=== PATIENT | female | born 1955 | race Caucasian/White ===

== ENCOUNTER → 2017-08-16 08:11 | Outpatient (CLI) | payer OTHER, SELFPAY ==
[2017-08-16 09:32] LABS: Hematocrit 37.4 % (36-46); Hemoglobin 12.8 g/dL (12.0-16.0); Mean Corpuscular HGB Conc 34.2 % (30-36); Mean Corpuscular Hemoglobin 29.7 PG (26-34); Mean Corpuscular Volume 86.9 fL (80-100); Platelet Count 224 X10^3/uL (150-400); Red Blood Cell Count 4.31 X10^6/uL (4.0-5.2); Red Cell Distribution Width 13.2 % (11.6-14.8); White Blood Cell Count 6.7 X10^3/uL (4.5-11.0)
[2017-08-16 09:43] LABS: Morphology Comment Normal Morphology; Neutrophils Absolute Manual 3149 /uL (3000-5900); Total Cells Counted 100
[2017-08-16 09:45] LABS: Alanine Aminotransferase 20 IU/L (9-52); Albumin 4.4 g/dL (3.5-5.0); Albumin Globulin Ratio 1.5 (1.0-2.8); Alkaline Phosphatase 99 U/L (38-126); Amylase 91 U/L (30-110); Aspartate Aminotransferase 19 IU/L (14-36); Bilirubin Total 0.3 mg/dL (0.2-1.3); Blood Urea Nitrogen 14 mg/dL (7-17); Calcium 9.8 mg/dL (8.4-10.2); Carbon Dioxide 26 mmol/L (22-32); Chloride 102 mmol/L (98-107); Estimated Glomerular Filt Rate > 60.0 mL/min (>60); Globulin 2.9 g/dL (1.7-4.1); Glucose 117 mg/dL (80-110); HEMOLYSIS < 15 (0-50); Lipase 393 U/L (23-300); Sodium 140 mmol/L (137-145); Total Protein 7.3 g/dL (6.3-8.2)
== END ==
PROVIDERS: Family Provider Family Medicine; PCP Family Medicine; Visit Provider Family Medicine
DX: E03.9 Hypothyroidism, unspecified (principal); I10 Essential (primary) hypertension
CPT/HCPCS: 36415; 80053; 82150; 83690; 85025

== ENCOUNTER → 2017-08-16 08:38 | Outpatient (CLI) | payer OTHER, SELFPAY ==
--- NOTE | 2017-08-16 08:40 | DI.RAD.S_ITS ---
PROCEDURE: XR PELVIS 1-2V COMPARISON: None. INDICATIONS: Left hip pain FINDINGS: There is slight narrowing of the left hip joint and a small subcortical cyst in the left acetabulum laterally. No deformity of the femoral heads and no visible marginal spurring. The sacroiliac joints appear normal. IMPRESSION: 1. Mild grade 1 osteoarthritis left hip. 2. No acute fracture, dislocation or diastases. No suspicious bone lesions. Dictated by: Britton Gibson M.D. on 08/16/2017 at 8:53 Approved by: Britton Gibson M.D. on 08/16/2017 at 8:55
== END ==
PROVIDERS: Family Provider Family Medicine; PCP Family Medicine; Visit Provider Family Medicine
DX: E03.9 Hypothyroidism, unspecified (principal); I10 Essential (primary) hypertension; M16.12 Unilateral primary osteoarthritis, left hip
CPT/HCPCS: 36415; 72170; 80053; 82150; 83690; 85025

== ENCOUNTER → 2017-08-29 08:03 | Outpatient (CLI) | payer OTHER, SELFPAY ==
--- NOTE | 2017-08-29 08:04 | DI.US.S_ITS ---
PROCEDURE: US ABDOMEN COMPLETE INDICATIONS: LEFT UPPER QUADRANT PAIN TECHNIQUE: Real-time scanning was performed of the abdominal and retroperitoneal organs, with image documentation. COMPARISON: None. FINDINGS: Liver: Liver is normal in size and homogeneous in echotexture. Gallbladder: No gallstones identified. Normal gallbladder wall. No pericholecystic fluid. Negative sonographic Antunez sign. Biliary ducts: Intrahepatic bile ducts are non-dilated. Extrahepatic bile duct caliber measures 4.5 mm. Normal is 6-7 mm or less in diameter, or 10 mm or less post-cholecystectomy. Pancreas: Visualized portions of the pancreas are sonographically normal. Spleen: Spleen is normal in size and homogeneous in echotexture. Kidneys: Kidneys are normal in size and echotexture. Right kidney measures 9.8 cm long; left kidney measures 10.5 cm long. No hydronephrosis or nephrolithiasis. No solid masses. Aorta: Visualized aorta is normal in caliber at less than 3 cm. Iliacs: Proximal common iliac arteries are normal in caliber at less than 2.5 cm. IVC: Intrahepatic inferior vena cava is patent. Miscellaneous: No free abdominal fluid. IMPRESSION: No source for left upper quadrant pain identified sonographically. Dictated by: Hugo SWANSON Interpreted: Gregg Miller MD on 08/29/2017 at 9:08 Approved by: Gregg Miller M.D. on 08/29/2017 at 11:05
== END ==
PROVIDERS: Family Provider Family Medicine; PCP Family Medicine; Visit Provider Family Medicine
DX: R10.12 Left upper quadrant pain (principal); R10.2 Pelvic and perineal pain
CPT/HCPCS: 76700

== ENCOUNTER → 2017-11-03 10:02 | Outpatient (CLI) | payer OTHER, SELFPAY ==
[2017-11-03 11:20] LABS: Hemoglobin A1C% w Est Avg Glu 6.5 % (4.0-6.0)
[2017-11-03 12:01] LABS: Creatinine Urine Random 74.9 mg/dL
[2017-11-03 12:04] LABS: Alanine Aminotransferase 18 IU/L (9-52); Albumin 4.3 g/dL (3.5-5.0); Albumin Globulin Ratio 1.4 (1.0-2.8); Alkaline Phosphatase 72 U/L (38-126); Aspartate Aminotransferase 23 IU/L (14-36); BUN Creatinine Ratio 13.8 (6-22); Bilirubin Total 0.6 mg/dL (0.2-1.3); Blood Urea Nitrogen 11 mg/dL (7-17); Calcium 9.8 mg/dL (8.4-10.2); Carbon Dioxide 30 mmol/L (22-32); Chloride 102 mmol/L (98-107); Cholesterol 188 mg/dL (140-199); Estimated Glomerular Filt Rate > 60.0 mL/min (>60); Glucose 117 mg/dL (80-110); HDL Cholesterol 62 mg/dL (40-60); HEMOLYSIS < 15 (0-50); LDL Cholesterol Calculated 94 mg/dL (<100); Potassium 5.1 mmol/L (3.4-5.1); Sodium 141 mmol/L (137-145); Total Protein 7.3 g/dL (6.3-8.2); Triglycerides 160 mg/dL (35-150)
[2017-11-03 12:19] LABS: Microalbumin Urine Random < 0.6 mg/dL (0-1.6)
== END ==
PROVIDERS: Family Provider Family Medicine; PCP Family Medicine; Visit Provider Family Medicine
DX: E11.9 Type 2 diabetes mellitus without complications (principal); I10 Essential (primary) hypertension
CPT/HCPCS: 36415; 80053; 80061; 82043; 82570; 83036

== ENCOUNTER 2017-11-24 09:00 | Outpatient (RCR) | payer OTHER, SELFPAY ==
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
--- NOTE | 2017-10-16 15:50 | PT.OPPOC ---
Current Diagnoses Pain in unspecified hip (10/13/17) Sacrococcygeal disorders, not elsewhere classified (10/13/17) Strain of muscle, fascia and tendon of the posterior muscle group at thigh level, left thigh, subsequent encounter (10/13/17) Provider Visit Care Team Role Provider Type Soni Ron DO Attending Provider Physician Family Provider Primary Care Provider Specialty: Family Practice Address: [address] [place] [address], [facility] Email: [email or web address] Plan Of Care PT-OP-T Assessment and Plan Start: 10/13/17 08:53 Freq: Status: Active Protocol: Document 10/13/17 09:00 AMB (Rec: 10/16/17 15:41 AMB [email or web address]) Physical Therapy Assessment Rehab Potential Rehabilitation Potential Fair Evaluation Complexity Number of Personal Factors/Comorbidities 1-2 Number of Body Systems Impaired 3 Clinical Presentation at Evaluation Stable Impairments Impairments Pain Posture Strength Goals Four Impairment ROM Short Term Goal (STG) The patient will increase her left straight leg raise to 90 degrees to show improved hamstring flexibility. STG Duration 4 weeks Three Impairment Gait [facility] Goal (LTG) The patient will ambulate in the community for 30 minutes with pain of 3/10 or less. LTG Duration 8 weeks Two Impairment Strength Short Term Goal (STG) The patient will increase her hamstring and gluteal strength to 4+/5. STG Duration 4 weeks [facility] Goal (LTG) The patient will use her increased LE strength to perform a full squat without an increase in pain. LTG Duration 8 weeks. One Impairment Activity tolerance Short Term Goal (STG) The patient will sit for 15 minutes without an increase in baseline pain. STG Duration 4 weeks Flooring Sales Manager Goal (LTG) The patient will roll over in bed without an increase in pain. 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 The patient is weak and tight in her gluteals and hamstrings, and while she has coccyx dysfunction, at this point is not interested in internal mobilization. She will benefit from both manual therapy and exercise although she states that she dislikes exercise and feels that she needs surgery (although she does not state what kind of surgery she is interested in). Physical Therapy Plan Frequency and Duration Frequency of Treatment 2x/Week Duration of Treatment 8 weeks Plan of Care Start Date 10/13/17 Plan of Care End Date 12/08/17 Therapeutic Interventions Therapeutic Interventions Aquatic Therapy Gait Training Joint Mobilizations Manual Therapy Neuromuscular Re-education Self-Care/Home Management Therapeutic Activities Therapeutic Exercises Modalities Cold Pack/Ice Massage Electric Stimulation Hot Packs Ultrasound Next Visit Focus/Plan Next Note Type Treatment Note Plan of Care Dates Plan of Care Start Date 10/13/17 Plan of Care End Date 12/08/17 Please Sign and Return: I have reviewed this Plan of Care and certify that the skilled therapy services above are required to meet the patient?s needs. Physician Signature Date Printed Name and Credentials Clinical Instructor Signature Printed Name and Credentials
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
== END 2018-02-13 10:57 ==
LOC: PHYS 09:00
PROVIDERS: Family Provider Family Medicine; PCP Family Medicine; Visit Provider Family Medicine
DX: M25.559 Pain in unspecified hip (principal)
CPT/HCPCS: 97010; 97014; 97110; 97140; 97161; G0283

== ENCOUNTER → 2017-12-20 15:41 | Outpatient (CLI) | payer OTHER, SELFPAY ==
[2017-12-20 18:24] LABS: Estimated Glomerular Filt Rate > 60.0 mL/min (>60)
== END ==
PROVIDERS: Family Provider Family Medicine; PCP Family Medicine; Visit Provider Internal Medicine Gastroenterology
DX: R63.4 Abnormal weight loss (principal)
CPT/HCPCS: 36415; 82565

== ENCOUNTER → 2018-03-30 08:57 | Outpatient (CLI) | payer OTHER, SELFPAY ==
[2018-03-30 09:39] LABS: Appearance Urine UA CLEAR; Bilirubin Urine UA NEGATIVE (NEGATIVE); Color Urine UA YELLOW; Glucose Urine UA NEGATIVE (Negative); Ketones Urine UA NEGATIVE (NEGATIVE); Leukocyte Esterase Urine UA NEGATIVE (NEGATIVE); Nitrite Urine UA NEGATIVE (Negative); Occult Blood Urine UA TRACE-LYSED (Negative); Protein Urine UA NEGATIVE (Negative); Specific Gravity Urine UA 1.025 (1.000-1.035); Urobilinogen Urine UA 0.2 E.U./dL (0.2)
[2018-03-30 09:44] LABS: Hemoglobin A1C% w Est Avg Glu 6.7 % (4.0-6.0)
[2018-03-30 09:45] LABS: Alanine Aminotransferase 17 IU/L (9-52); Albumin 4.4 g/dL (3.5-5.0); Albumin Globulin Ratio 1.5 (1.0-2.8); Alkaline Phosphatase 78 U/L (38-126); Aspartate Aminotransferase 21 IU/L (14-36); BUN Creatinine Ratio 17.5 (6-22); Bilirubin Total 0.2 mg/dL (0.2-1.3); Blood Urea Nitrogen 14 mg/dL (7-17); Calcium 9.5 mg/dL (8.4-10.2); Carbon Dioxide 25 mmol/L (22-32); Chloride 105 mmol/L (98-107); Cholesterol 211 mg/dL (140-199); Estimated Glomerular Filt Rate > 60.0 mL/min (>60); Glucose 120 mg/dL (80-110); HDL Cholesterol 57 mg/dL (40-60); HEMOLYSIS < 15 (0-50); LDL Cholesterol Calculated 130 mg/dL (<100); Potassium 4.3 mmol/L (3.4-5.1); Sodium 140 mmol/L (137-145); Total Protein 7.4 g/dL (6.3-8.2); Triglycerides 122 mg/dL (35-150)
[2018-03-30 10:29] LABS: Free T3, Triiodothyronine Free 2.68 pg/mL (2.77-5.27); Free T4, Direct Thyroxine 1.26 ng/dL (0.78-2.19)
[2018-03-30 10:42] LABS: Thyroid Stimulating Hormone 1.52 uIU/mL (0.47-4.68)
== END ==
PROVIDERS: PCP Family Medicine; Visit Provider Family Medicine
DX: E03.9 Hypothyroidism, unspecified (principal); E11.9 Type 2 diabetes mellitus without complications; I10 Essential (primary) hypertension; Z51.81 Encounter for therapeutic drug level monitoring
CPT/HCPCS: 36415; 80053; 80061; 81003; 83036; 84439; 84443; 84481

== ENCOUNTER → 2018-04-27 13:22 | Outpatient (CLI) | payer OTHER, SELFPAY ==
[2018-04-27 14:01] LABS: Amylase 69 U/L (30-110); Lipase 233 U/L (23-300)
== END ==
PROVIDERS: PCP Family Medicine; Visit Provider Family Medicine
DX: K85.90 Acute pancreatitis without necrosis or infection, unspecified (principal)
CPT/HCPCS: 36415; 82150; 83690

== ENCOUNTER → 2018-06-23 08:18 | Outpatient (CLI) | payer OTHER, SELFPAY ==
--- NOTE | 2018-06-23 08:20 | DI.MG.S_ITS ---
BILATERAL DIGITAL SCREENING MAMMOGRAM 3D/2D WITH CAD: 06/23/2018 CLINICAL: Routine screening. Family history of breast cancer. Comparison is made to exams dated: 10/02/2015 mammogram, 06/08/2010 mammogram, and 12/01/2003 mammogram - [facility]. There are scattered fibroglandular elements in both breasts. Current study was also evaluated with a Computer Aided Detection (CAD) system. No significant masses, calcifications, or other findings are seen in either breast. There has been no significant interval change. IMPRESSION: NEGATIVE There is no mammographic evidence of malignancy. A 1 year screening mammogram is recommended. This exam was interpreted at Station ID: [id number]. NOTE: For mammograms, a report in lay terms will be sent to the patient. Approximately 15% of breast malignancies will not be visualized mammographically. In the management of a palpable breast mass, a negative mammogram must not discourage biopsy of a clinically suspicious lesion. Electronically Signed By: David cortez/felice:06/25/2018 07:44:07 letter sent: Normal Exam ACR BI-RADS Category 1: Negative [id number]
== END ==
PROVIDERS: PCP Family Medicine; Visit Provider Family Medicine
DX: Z12.31 Encounter for screening mammogram for malignant neoplasm of breast (principal); Z80.3 Family history of malignant neoplasm of breast
CPT/HCPCS: 77063; 77067

== ENCOUNTER → 2019-01-03 10:58 | Outpatient (CLI) | payer OTHER, SELFPAY ==
[2019-01-03 11:36] LABS: Add Manual Diff / Slide Review NO; Basophils Absolute Auto 100 /uL (0-100); Basophils Percent Auto 2.1 % (0-2); Eosinophils Absolute Auto 200 /uL (0-450); Eosinophils Percent Auto 3.3 % (2-4); Hematocrit 39.8 % (36-46); Hemoglobin 13.3 g/dL (12.0-16.0); Lymphocytes Absolute Auto 2300 /uL (1100-4500); Lymphocytes Percent Auto 37.5 % (25-40); Mean Corpuscular HGB Conc 33.3 % (30-36); Mean Corpuscular Hemoglobin 29.7 PG (26-34); Mean Corpuscular Volume 89.1 fL (80-100); Monocytes Absolute Auto 500 /uL (0-900); Monocytes Percent Auto 7.5 % (3-14); Neutrophils Absolute Auto 3000 /uL (1500-7000); Neutrophils Percent Auto 49.6 % (50-75); Platelet Count 229 X10^3/uL (150-400); Red Blood Cell Count 4.47 X10^6/uL (4.0-5.2); Red Cell Distribution Width 13.3 % (11.6-14.8)
[2019-01-03 11:56] LABS: Alanine Aminotransferase 12 IU/L (9-52); Albumin 4.4 g/dL (3.5-5.0); Albumin Globulin Ratio 1.5 (1.0-2.8); Alkaline Phosphatase 90 U/L (38-126); Aspartate Aminotransferase 23 IU/L (14-36); BUN Creatinine Ratio 14.3 (6-22); Bilirubin Total 0.4 mg/dL (0.2-1.3); Blood Urea Nitrogen 10 mg/dL (7-17); Calcium 9.7 mg/dL (8.4-10.2); Carbon Dioxide 27 mmol/L (22-32); Chloride 106 mmol/L (98-107); Cholesterol 200 mg/dL (140-199); Estimated Glomerular Filt Rate > 60.0 mL/min (>60); Globulin 2.9 g/dL (1.7-4.1); Glucose 134 mg/dL (80-110); HDL Cholesterol 58 mg/dL (40-60); HEMOLYSIS < 15 (0-50); LDL Cholesterol Calculated 109 mg/dL (<100); Sodium 140 mmol/L (137-145); Total Protein 7.3 g/dL (6.3-8.2); Triglycerides 166 mg/dL (35-150)
== END ==
PROVIDERS: PCP Family Medicine; Visit Provider Family Medicine
DX: E03.9 Hypothyroidism, unspecified (principal); E11.9 Type 2 diabetes mellitus without complications; I10 Essential (primary) hypertension
CPT/HCPCS: 36415; 80053; 80061; 84443; 85025

== ENCOUNTER → 2019-01-11 14:54 | Outpatient (CLI) | payer OTHER, SELFPAY ==
[2019-01-11 15:54] LABS: Hemoglobin A1C% w Est Avg Glu 6.5 % (4.0-6.0)
== END ==
PROVIDERS: PCP Family Medicine; Visit Provider Family Medicine
DX: E11.9 Type 2 diabetes mellitus without complications (principal); I10 Essential (primary) hypertension
CPT/HCPCS: 36415; 83036

== ENCOUNTER → 2019-03-06 14:27 | Outpatient (CLI) | payer OTHER, SELFPAY | PROVIDERS: PCP Family Medicine; Visit Provider Physician Assistant | DX: N30.01 Acute cystitis with hematuria (principal) | CPT/HCPCS: 87077; 87086; 87186 ==

== ENCOUNTER → 2019-03-27 13:50 | Outpatient (CLI) | payer OTHER, SELFPAY ==
[2019-03-27 14:40] LABS: Appearance Urine UA CLOUDY; Bilirubin Urine UA NEGATIVE (NEGATIVE); Color Urine UA YELLOW; Glucose Urine UA NEGATIVE (Negative); Ketones Urine UA NEGATIVE (NEGATIVE); Leukocyte Esterase Urine UA 3+ (NEGATIVE); Nitrite Urine UA NEGATIVE (Negative); Occult Blood Urine UA 3+ (Negative); Protein Urine UA 1+ (Negative); Urobilinogen Urine UA 0.2 E.U./dL (0.2)
[2019-03-27 15:17] LABS: Bacteria Urine Many (>30); Culture Indicated Urine Specimen Cultured; RBC Urine 10-30/HPF (0-5/HPF); Squamous Epithelial Cell Urine 0-1 /HPF (0-5/HPF); WBC Urine >100/HPF (0-5/HPF)
== END ==
PROVIDERS: PCP Family Medicine; Visit Provider Family Medicine
DX: R39.9 Unspecified symptoms and signs involving the genitourinary system (principal)
CPT/HCPCS: 81003; 81015; 87077; 87086; 87186

== ENCOUNTER 2019-04-04 14:43 | Emergency (ER) | payer OTHER, SELFPAY ==
[2019-04-04 14:46] VITALS: BP 137/79; PULSE 76; RESP 16; TEMP 36.8; O2SAT 98; BMI 24.3
[2019-04-04 16:59] LABS: Add Manual Diff / Slide Review NO; Basophils Absolute Auto 200 /uL (0-100); Basophils Percent Auto 1.9 % (0-2); Eosinophils Absolute Auto 500 /uL (0-450); Eosinophils Percent Auto 5.7 % (2-4); Hematocrit 37.9 % (36-46); Hemoglobin 12.7 g/dL (12.0-16.0); Lymphocytes Absolute Auto 2300 /uL (1100-4500); Lymphocytes Percent Auto 25.2 % (25-40); Mean Corpuscular HGB Conc 33.4 % (30-36); Mean Corpuscular Hemoglobin 29.4 PG (26-34); Monocytes Absolute Auto 700 /uL (0-900); Monocytes Percent Auto 7.7 % (3-14); Neutrophils Absolute Auto 5400 /uL (1500-7000); Neutrophils Percent Auto 59.5 % (50-75); Platelet Count 249 X10^3/uL (150-400); Red Blood Cell Count 4.31 X10^6/uL (4.0-5.2); Red Cell Distribution Width 12.9 % (11.6-14.8)
[2019-04-04 17:08] LABS: INR 0.9 (0.9-1.3); Prothrombin Time 10.2 SECONDS (10.1-12.7)
[2019-04-04 17:10] LABS: PTT Partial Thromboplastin Tim 25 SECONDS (26.4-36.2)
[2019-04-04 17:12] LABS: Alanine Aminotransferase 15 IU/L (<35); Albumin 4.5 g/dL (3.5-5.0); Albumin Globulin Ratio 1.3 (1.0-2.8); Alkaline Phosphatase 88 U/L (38-126); Aspartate Aminotransferase 26 IU/L (14-36); Bilirubin Total 0.3 mg/dL (0.2-1.3); Blood Urea Nitrogen 14 mg/dL (7-17); Calcium 9.9 mg/dL (8.4-10.2); Carbon Dioxide 26 mmol/L (22-32); Chloride 102 mmol/L (98-107); Estimated Glomerular Filt Rate > 60.0 mL/min (>60); Globulin 3.4 g/dL (1.7-4.1); Glucose 134 mg/dL (80-110); HEMOLYSIS 32 (0-50); Lipase 164 U/L (23-300); Sodium 139 mmol/L (137-145); Total Protein 7.9 g/dL (6.3-8.2)
[2019-04-04 17:30] VITALS: BP 116/62; PULSE 72; RESP 16; O2SAT 98
--- NOTE | 2019-04-04 18:26 | ED_ITS ---
HPI - Female Genitourinary General Chief complaint: Urogenital-Female Stated complaint: mid and low back pain foggie of brain UTI bacteria Time Seen by Provider: 04/04/19 18:06 Source: patient Mode of arrival: Ambulatory Limitations: no limitations History of Present Illness HPI Narrative: 63F former smoker with history of diabetes whom presents to the emergency department with her and a chief complaint of ongoing dysuria, frequency and urgency as well as left flank pain and now feeling a bit foggy. She has been through 2 courses of nitrofurantoin after presenting to her primary care provider few weeks ago with classic dysuria, frequency and urgency symptoms followed by a very convincing urine dip. Her culture is largely pansensitive and noted E coli. She states that she felt near complete resolution of symptoms after first round of Nitrofurantoin, but not complete. Now she has the above stated symptoms. She has no fever, chills, vomiting or diarrhea, but does have some nausea MD Complaint: dysuria Onset (ago): hour(s) Female Urogenital Radiation: L Flank Severity: moderate Quality: Aching Duration: intermittent Relieving factors: movement Exacerbating factors: urination and movement Urinary symptoms: Difficulty Urinating, Dysuria and Flank Pain Patient : No Associated symptoms: nausea/vomiting Related Data Home Medications Medication Instructions Recorded Confirmed calcium carbonate-vitamin D3 1 ctb PO #0 03/09/16 03/06/19 cyanocobalamin (vitamin B-12) 500 mcg PO QDAY #0 03/09/16 03/06/19 [Vitamin B-12] multivitamin [Multiple Vitamins] 1 tab PO QDAY #0 03/09/16 03/06/19 diphenhydramine HCl [Benadryl 25 mg PO Q6HP PRN #0 07/20/16 03/06/19 Allergy] cetirizine 10 mg tablet 10 mg PO DAILY 08/15/17 03/06/19 Previous Rx's Medication Instructions Recorded azelastine 137 mcg INTRANASAL Q DAY PRN PRN 05/18/17 #3 bot levothyroxine 100 mcg PO QAM #90 tab 04/13/18 estradiol 1 gram VAG 3XW #42.5 gram 05/11/18 lorazepam 1 mg tablet 0.5 mg PO QD-BID PRN #5 tab 05/11/18 pneumoc 13-marek conj-dip cr(PF) 0.5 0.5 ml IM ONCE #0.5 ml 05/11/18 mL IM syringe varicella-zoster [id number] (PF) 50 50 mcg IM ONCE #2 each 05/11/18 mcg/0.5 mL IM tim watts metformin 500 mg tablet 500 mg PO TIDCC #270 tab 10/29/18 atorvastatin 40 mg tablet 40 mg PO DAILY #30 tab 12/27/18 montelukast 10 mg tablet 10 mg PO DAILY #90 tab 02/22/19 cephalexin [Keflex] 500 mg PO QID 10 Days #40 cap 04/04/19 Allergies Allergy/AdvReac Type Severity Reaction Status Date / Time ciprofloxacin Allergy Intermediate RASH Verified 03/06/19 14:09 Penicillins Allergy Intermediate RASH Verified 03/06/19 14:09 Sulfa (Sulfonamide Allergy Unknown Verified 03/06/19 14:09 Antibiotics) Review of Systems Constitutional Constitutional: Denies chills, Denies fatigue, Denies fever(s), Denies frequent falls, Denies lethargy and Denies weakness Eyes Eyes: Denies change in vision, Denies eye discharge, Denies irritation and Denies loss of vision ENT Ears, Nose, Mouth, and Throat: Denies change in voice, Denies dizziness, Denies neck pain, Denies sore throat and Denies throat swelling Cardiovascular Cardiovascular: Denies chest pain, Denies irregular heart rhythm, Denies lightheadedness, Denies palpitations, Denies dyspnea, Denies dyspnea on exertion and Denies orthopnea Respiratory Respiratory: Denies cough, Denies dyspnea, Denies dyspnea on exertion and Denies wheezing Gastrointestinal Gastrointestinal: Denies abdominal pain, Denies change in bowel habits, Denies diarrhea, Reports nausea and Denies vomiting Genitourinary Genitourinary: Denies hematuria, Reports flank pain, Denies urinary incontinence and Reports urinary urgency Musculoskeletal Musculoskeletal: Denies back pain, Denies muscle weakness, Denies neck pain, Denies numbness and Denies tingling Integumentary/Breasts Skin/Breast: Denies pruritus, Denies erythema, Denies rash and Denies wounds Neurologic Neurologic: Denies behavioral changes, Denies confusion, Denies dizziness, Denies frequent falls, Denies loss of vision, Denies numbness, Denies tingling and Denies weakness Psychiatric Psychiatric: Denies anxiety, Denies behavioral changes, Denies confusion, Denies depression, Denies homicidal ideation and Denies suicidal ideation Endocrine Endocrine: Denies fatigue, Denies flushing and Denies palpitations Hematologic/Lymphatic Hematologic/Lymphatic: Denies easy bruising Allergic/Immunologic Allergic/Immunologic: Denies urticaria, Denies throat swelling and Denies wheezing Patient History Medical History Allergy (Chronic 1973) Anemia (Resolved Unknown) Asthma (Chronic 2000) Chickenpox (Resolved ~1956) Colon polyps (Resolved Unknown) Diabetes (Chronic 2000) Endometriosis (Resolved 1974) Hyperlipidemia (Chronic 2000) Hypothyroidism (Chronic 2000) Menopause (Chronic 2000) Migraines (Chronic 1976) Peripheral neuropathy (Chronic 2011) Pneumonia (Resolved Unknown) Recurrent sinusitis (Chronic 1984) Restless leg syndrome (Chronic 2011) Urinary incontinence (Chronic 2009) Surgical History Status post endometrial ablation Family History Child Age: 36 Hypertension Hyperlipidemia Depression Child Age: 31 Hypertension Hyperlipidemia Depression Mother Diabetes mellitus Hypertension Asthma Hyperlipidemia Sister Age: 66 Diabetes mellitus Fibromyalgia Depression alcohol intake frequency: holidays/special occasions only Substance Use Type: does not use Exam Narrative Exam Narrative: GENERAL: [63] year old patient appears stated age. Well- nourished, well-developed patient, in mild distress. HEAD: Atraumatic. Normocephalic. EYES: Pupils equal round and reactive. Extraocular motions intact. No scleral icterus. No injection or drainage. ENT: Nose without bleeding, purulent drainage. Throat without erythema, tonsillar hypertrophy or exudate. Airway patent. NECK: Trachea midline. Non tender CARDIOVASCULAR: Regular rate and rhythm without murmurs, gallops, or rubs. RESPIRATORY: Clear to auscultation. Breath sounds equal bilaterally. No wheezes, rales, or rhonchi. GASTROINTESTINAL: Abdomen soft, non-tender, nondistended. EXTREMITIES: No edema or joint tenderness. BACK: L flank tenderness to palpation NEURO: AOx3. SKIN: No rash or erythema of visible areas Initial Vital Signs Initial Vital Signs: Vital Signs Temperature 98.3 F 04/04/19 14:46 Pulse Rate 76 04/04/19 14:46 Respiratory Rate 16 04/04/19 14:46 Blood Pressure 137/79 04/04/19 14:46 Pulse Oximetry 98 04/04/19 14:46 Course Orders Ordered: ED Orders 04/04/19 16:50 Complete Blood Count AUTO DIFF Stat Comprehensive Metabolic Panel Stat Lipase Stat Partial Thromboplastin Time Stat Prothrombin Time INR Stat 04/04/19 18:49 US renal complete Stat Discontinued Medications Ceftriaxone Sodium/Dextrose (Rocephin) 1 gm in 50 mls @ 100 mls/hr IV NOW ONE Stop: 04/04/19 19:18 Last Infusion: 04/04/19 19:35 Dose: 0 mls/hr Documented by: Admin: 04/04/19 19:02 Dose: 100 mls/hr Documented by: SHAD Vital Signs Vital signs: Vital Signs - 8 hr 04/04/19 17:30 04/04/19 19:22 04/04/19 20:30 Pulse Rate 72 78 72 Respiratory Rate 16 19 16 Blood Pressure [Left Arm] 116/62 105/69 129/77 Pulse Oximetry 98 98 99 04/04/19 20:59 Pulse Rate 73 Respiratory Rate 16 Blood Pressure [Left Arm] 119/52 L Pulse Oximetry 98 MDM - Female Genitourinary Lab Data Result diagrams: 04/04/19 16:50 04/04/19 16:50 Labs: Lab Results 04/04/19 04/04/19 04/04/19 Range/Units 16:50 16:50 16:50 WBC 9.0 (4.5-11.0) X10^3/uL RBC 4.31 (4.0-5.2) X10^6/uL Hgb 12.7 (12.0-16.0) g/dL Hct 37.9 (36-46) % MCV 88.0 (80-100) fL MCH 29.4 (26-34) PG MCHC 33.4 (30-36) % RDW 12.9 (11.6-14.8) % Plt Count 249 (150-400) X10^3/uL Neut % (Auto) 59.5 (50-75) % Lymph % (Auto) 25.2 (25-40) % [place] % (Auto) 7.7 (3-14) % Eos % (Auto) 5.7 H (2-4) % Baso % (Auto) 1.9 (0-2) % Neut # (Auto) 5400 (9657-7925) /uL Lymph # (Auto) 2300 (4301-9978) /uL [place] # (Auto) 700 (0-900) /uL Eos # (Auto) 500 H (0-450) /uL Baso # (Auto) 200 H (0-100) /uL PT 10.2 (10.1-12.7) SECONDS INR 0.9 (0.9-1.3) APTT 25 L (26.4-36.2) SECONDS Sodium 139 (137-145) mmol/L Potassium 4.0 (3.4-5.1) mmol/L Chloride 102 (98-107) mmol/L Carbon Dioxide 26 (22-32) mmol/L BUN 14 (7-17) mg/dL Creatinine 0.70 (0.52-1.04) mg/dL Estimated GFR > 60.0 (>60) mL/min BUN/Creatinine Ratio 20.0 (6-22) Glucose 134 H (80-110) mg/dL Calcium 9.9 (8.4-10.2) mg/dL Total Bilirubin 0.3 (0.2-1.3) mg/dL AST 26 (14-36) IU/L ALT 15 (<35) IU/L Alkaline Phosphatase 88 (38-126) U/L Total Protein 7.9 (6.3-8.2) g/dL Albumin 4.5 (3.5-5.0) g/dL Globulin 3.4 (1.7-4.1) g/dL Albumin/Globulin Ratio 1.3 (1.0-2.8) Lipase 164 (23-300) U/L Urine Dip Bedside Urine Glucose Negative Bedside Urine Bilirubin - Negative Bedside Urine Ketone - Negative Urine Specific [place] 1.015 Bedside Urine Occult Blood - Negative Bedside Urine pH 6.0 Bedside Urine Protein - Negative Bedside Urine Urobilinogen - Negative Bedside Urine Nitrite - Negative Bedside Urine Leukocytes - Negative Esterase MDM Narrative Medical decision making narrative: Patient with recurrent UTI symptoms and recent course of nitrofurantoin presents with nausea, weakness, and flank pain. She is not septic and has very reassuring labs and exam. Though her urine is clear it is unclear how to interpret this in the aftermath of a recent course of ABX. Renal US is unremarkable. Given her recent hx we elect to switch her to an antibiotic with better parenchymal penetration and encourage close follow up. Return precautions given Discharge Plan Departure Patient Disposition: Home Clinical Impression: Urinary tract infection Qualifiers: Urinary tract infection type: acute pyelonephritis Qualified Code(s): N10 - Acute pyelonephritis Discharge Date/Time: 04/04/19 21:23 Instructions: DI for Kidney Infection Activity Restrictions/Additional Instructions: *You have been diagnosed with [acute pyelonephritis] *What to do: *Take medications as directed: Prescription to [facility] *Follow up with your primary care provider in 2-3 days, call for an appointment. Let them know you were seen in the Emergency Department and that we ask that you be seen in follow up *Return to ER if you should have any new, worsening or concerning symptoms, such as [worsening pain, fever over 101 F, shaking chills or other bothersome symptoms] Prescriptions: New cephalexin [Keflex] 500 mg capsule 500 mg PO QID 10 Days Qty: 40 RF: 0 No Action cetirizine [Zyrtec] 10 mg tablet 10 mg PO DAILY RF: 0 estradiol 0.01 % (0.1 mg/gram) cream 1 gram VAG 3XW Qty: 42.5 RF: 5 lorazepam [Ativan] 1 mg tablet 0.5 mg PO QD-BID PRN (Reason: anxiety) Qty: 5 RF: 0 Shingrix (PF) 50 mcg/0.5 mL suspension for reconstitution 50 mcg IM ONCE Qty: 2 RF: 0 Prevnar 13 (PF) 0.5 mL syringe 0.5 ml IM ONCE Qty: 0.5 RF: 0 multivitamin [Multiple Vitamins] 1 EACH tablet 1 tab PO QDAY Qty: 0 RF: 0 calcium carbonate-vitamin D3 500 MG/100 IU tablet,chewable 1 ctb PO Qty: 0 RF: 0 cyanocobalamin (vitamin B-12) [Vitamin B-12] 500 MCG tablet 500 mcg PO QDAY Qty: 0 RF: 0 diphenhydramine HCl [Benadryl Allergy] 25 MG tablet 25 mg PO Q6HP PRNQty: 0 RF: 0 azelastine 137 MCG/0.137 ML aerosol,spray 137 mcg Intranasal Q DAY PRN PRNQty: 3 RF: 0 levothyroxine 100 mcg tablet 100 mcg PO QAM Qty: 90 RF: 3 metformin [Glucophage] 500 mg tablet 500 mg PO TIDCC Qty: 270 RF: 1 atorvastatin 40 mg tablet 40 mg PO DAILY Qty: 30 RF: 0 montelukast 10 mg tablet 10 mg PO DAILY Qty: 90 RF: 3 Referrals: Soni Ron DO [Primary Care Provider] -
--- NOTE | 2019-04-04 18:49 | DI.US.S_ITS ---
PROCEDURE: US RENAL COMPLETE INDICATIONS: SEVERE LT FLANK PAIN, MULTIPLE UTI'S TECHNIQUE: Real-time scanning was performed of the kidneys and bladder, with image documentation. COMPARISON: [facility], CT, CT ABDOMEN PELVIS WITH CONTRAST, 12/22/2017, 13:32. FINDINGS: Kidneys: Kidneys are normal in size. Right kidney measures 9.4 cm long; left kidney measures 11.0 cm long. Right renal cortical thickness is 1.3 cm; left renal cortical thickness is 1.3 cm. Renal cortical echotexture is normal. No hydronephrosis or nephrolithiasis. No suspicious solid mass lesions. Bladder: Pre-void bladder volume is 405 mL. Post-void residual is 35 mL. Pre-void images demonstrate no intraluminal masses or stones. On pre-void images, neither ureteral jets are noted with color Doppler interrogation. (Of note, ureteral jets may not be detectable in up to 25% of cases due to insufficient differences in specific gravity between ureteral and bladder urine). Miscellaneous: No free pelvic fluid. IMPRESSION: 1. No renal stone hydronephrosis. 2. Distended bladder but minimal post void residual. Dictated by: Halina Louie M.D. on 04/04/2019 at 20:08 Approved by: Halina Luoie M.D. on 04/04/2019 at 20:10
[2019-04-04] MEDS: CEFTRIAXONE 1 GM/50 ML FROZ.PIGGY IV (19:02)
[2019-04-04 19:22] VITALS: BP 105/69; PULSE 78; RESP 19; O2SAT 98
[2019-04-04 20:30] VITALS: BP 129/77; PULSE 72; RESP 16; O2SAT 99
[2019-04-04 20:59] VITALS: BP 119/52; PULSE 73; RESP 16; O2SAT 98
== END 2019-04-04 21:23 | disposition home or self-care (01) ==
PROVIDERS: Emergency Medicine; Emergency Provider Emergency Medicine; PCP Family Medicine
DX: N39.0 Urinary tract infection, site not specified (principal); N10 Acute pyelonephritis
CPT/HCPCS: 36415; 76770; 80053; 81003; 83690; 85025; 85610; 85730; 96365; 99284

== ENCOUNTER → 2019-05-05 16:38 | Outpatient (CLI) | payer OTHER, SELFPAY | PROVIDERS: PCP Nurse Practitioner Family; Visit Provider Nurse Practitioner | DX: N39.0 Urinary tract infection, site not specified (principal) | CPT/HCPCS: 87077; 87086; 87186 ==

== ENCOUNTER → 2019-08-30 07:23 | Outpatient (CLI) | payer OTHER, SELFPAY ==
[2019-08-30 08:20] LABS: Hemoglobin A1C% w Est Avg Glu 6.8 % (4.0-6.0)
[2019-08-30 08:25] LABS: Alanine Aminotransferase 12 IU/L (<35); Albumin 4.2 g/dL (3.5-5.0); Albumin Globulin Ratio 1.3 (1.0-2.8); Alkaline Phosphatase 73 U/L (38-126); Aspartate Aminotransferase 22 IU/L (14-36); BUN Creatinine Ratio 17.9 (6-22); Bilirubin Total 0.4 mg/dL (0.2-1.3); Blood Urea Nitrogen 14 mg/dL (7-17); Calcium 9.3 mg/dL (8.4-10.2); Carbon Dioxide 25 mmol/L (22-32); Chloride 105 mmol/L (98-107); Cholesterol 227 mg/dL (140-199); Estimated Glomerular Filt Rate > 60.0 mL/min (>60); Globulin 3.3 g/dL (1.7-4.1); Glucose 114 mg/dL (80-110); HDL Cholesterol 44 mg/dL (40-60); HEMOLYSIS < 15 (0-50); LDL Cholesterol Calculated 150 mg/dL (<100); Potassium 4.5 mmol/L (3.4-5.1); Sodium 138 mmol/L (137-145); Total Protein 7.5 g/dL (6.3-8.2); Triglycerides 165 mg/dL (35-150)
== END ==
PROVIDERS: PCP Family Medicine; Referring Provider Family Medicine; Visit Provider Family Medicine
DX: E03.9 Hypothyroidism, unspecified (principal); E11.9 Type 2 diabetes mellitus without complications; I10 Essential (primary) hypertension
CPT/HCPCS: 36415; 80053; 80061; 83036

== ENCOUNTER → 2019-09-03 16:08 | Outpatient (CLI) | payer OTHER, SELFPAY ==
[2019-09-03 17:48] LABS: Thyroid Stimulating Hormone 1.61 uIU/mL (0.47-4.68)
== END ==
PROVIDERS: PCP Family Medicine; Referring Provider Family Medicine; Visit Provider Family Medicine
DX: Z13.29 Encounter for screening for other suspected endocrine disorder (principal); E03.9 Hypothyroidism, unspecified
CPT/HCPCS: 36415; 84443

== ENCOUNTER → 2019-12-03 12:14 | Outpatient (CLI) | payer MEDICARE, OTHER, SELFPAY ==
--- NOTE | 2019-12-03 12:17 | DI.MRI.S_ITS ---
PROCEDURE: MR ABDOME PELVIS WWO CON INDICATIONS: chronic abd pain/back pain, freq UTI TECHNIQUE: Coronal HASTE, axial 2D FLASH in- and [id number]; axial breath-hold T2 FSE; dynamic axial VIBE during IV gadolinium administration; postgadolinium coronal VIBE or 2D FLASH with fat saturation from the hepatic dome to the iliac crests. COMPARISON: [facility], CT, CT ABDOMEN PELVIS WITH CONTRAST, 12/22/2017, 13:32. FINDINGS: Image quality: Excellent. Lung bases: Normal size heart. No basal pleural effusions. No hiatal hernia. Solid organs: The liver is normal in size and signal, with a smooth margin. A 15 mm ovoid lesion is present in the posterior dome of the liver is mildly T2 hyperintense and nonenhancing. No suspicious enhancing lesions in the liver. The gallbladder, spleen, pancreas, adrenal glands, and kidneys appear normal. Specifically, no hydronephrosis. Nodes and vessels: Normal caliber abdominal aorta and inferior vena cava. No retroperitoneal or mesenteric adenopathy. Bowel and peritoneum: The stomach is normal without wall thickening or unusual enhancement. Small bowel loops are nondistended. There is mildly increased quantity of solid stool throughout the colon. A normal appendix is seen. Occasional diverticula present in the sigmoid colon. No free pelvic fluid. Pelvis: The uterus appears normal. Urinary bladder wall is of normal thickness. No suspicious enhancing bladder mass. No abnormal adnexal mass. Pelvic vasculature is patent and of normal caliber. No pelvic adenopathy. Bones and soft tissues: Normal osseous signal. No unusual subcutaneous lesions. IMPRESSION: 1. No acute process. 2. Mildly increased quantity of solid stool present. . Dictated by: Dina Robins M.D. on 12/03/2019 at 14:09 Approved by: Dina Robins M.D. on 12/03/2019 at 14:39
== END ==
PROVIDERS: PCP Family Medicine; Referring Provider Family Medicine; Visit Provider Nurse Practitioner Family
DX: R10.12 Left upper quadrant pain (principal); N39.0 Urinary tract infection, site not specified; M54.9 Dorsalgia, unspecified; G89.29 Other chronic pain
CPT/HCPCS: 72197

== ENCOUNTER → 2019-12-04 13:38 | Outpatient (CLI) | payer MEDICARE, OTHER, SELFPAY ==
--- NOTE | 2019-12-04 13:41 | DI.RAD.S_ITS ---
PROCEDURE: XR LUMBAR SPINE 2-3V INDICATIONS: Progressive lower back pain TECHNIQUE: 3 views of the lumbar spine were acquired. COMPARISON: None. FINDINGS: Bones: 5 [id number] vertebrae are present. There is normal bony alignment. No vertebral body compression fractures. No suspicious bony lesions. Five note is made of a moderate degree of degenerative disc disease and facet osteoarthritis at L5-S1 and a wfet-er-fjqryelu degree of facet osteoarthritis at L4-L5. Slight convex rightward scoliosis is centered at L1. Soft tissues: Overlying bowel gas pattern is normal. No suspicious soft tissue calcifications. IMPRESSION: Mild scoliosis, L1 level, convex rightward. Nzpj-yr-ggemgqrd degenerative disc disease and facet osteoarthritis as discussed L4-5 and especially L5-S1. Spinal and foraminal stenosis would be suspected at L5-S1. Dictated by: Dajuan White M.D. on 12/04/2019 at 16:06 Approved by: Dajuan White M.D. on 12/04/2019 at 16:07
== END ==
PROVIDERS: PCP Family Medicine; Referring Provider Family Medicine; Visit Provider Family Medicine
DX: M54.5 Low back pain (principal); M41.86 Other forms of scoliosis, lumbar region; M47.816 Spondylosis without myelopathy or radiculopathy, lumbar region; M47.817 Spondylosis without myelopathy or radiculopathy, lumbosacral region
CPT/HCPCS: 72100

== ENCOUNTER → 2020-05-22 15:55 | Outpatient (CLI) | payer MEDICARE, OTHER, SELFPAY ==
[2020-05-22 16:53] LABS: Hemoglobin A1C% w Est Avg Glu 6.7 % (4.0-6.0)
[2020-05-22 16:54] LABS: Alanine Aminotransferase 15 IU/L (<35); Albumin 4.6 g/dL (3.5-5.0); Albumin Globulin Ratio 1.5 (1.0-2.8); Alkaline Phosphatase 76 U/L (38-126); Aspartate Aminotransferase 24 IU/L (14-36); BUN Creatinine Ratio 17.1 (6-22); Blood Urea Nitrogen 12 mg/dL (7-17); Calcium 9.8 mg/dL (8.4-10.2); Carbon Dioxide 29 mmol/L (22-32); Chloride 100 mmol/L (98-107); Cholesterol 224 mg/dL (140-199); Estimated Glomerular Filt Rate > 60.0 mL/min (>60); Globulin 3.1 g/dL (1.7-4.1); Glucose 113 mg/dL (80-110); HDL Cholesterol 54 mg/dL (40-60); HEMOLYSIS < 15 (0-50); LDL Cholesterol Calculated 94 mg/dL (<100); Potassium 4.2 mmol/L (3.4-5.1); Sodium 137 mmol/L (137-145); Total Protein 7.7 g/dL (6.3-8.2); Triglycerides 380 mg/dL (35-150)
[2020-05-22 17:04] LABS: Bilirubin Total < 0.1 mg/dL (0.2-1.3)
[2020-05-22 17:27] LABS: TSH w/ Reflex to FT4 2.19 uIU/mL (0.47-4.68)
== END ==
PROVIDERS: PCP Family Medicine; Referring Provider Family Medicine; Visit Provider Family Medicine
DX: E03.9 Hypothyroidism, unspecified (principal); E11.9 Type 2 diabetes mellitus without complications; I10 Essential (primary) hypertension; M25.531 Pain in right wrist; M67.40 Ganglion, unspecified site; R00.2 Palpitations; T73.3XXA Exhaustion due to excessive exertion, initial encounter
CPT/HCPCS: 36415; 80053; 80061; 83036; 84443

== ENCOUNTER → 2020-05-27 12:24 | Outpatient (CLI) | payer MEDICARE, OTHER, SELFPAY ==
[2020-05-27] MEDS: COVID-19 VACC, Ad26(JANSSEN)/PF 0.5 ML IM (12:51)
== END ==
PROVIDERS: PCP Family Medicine; Visit Provider Internal Medicine
DX: Z23 Encounter for immunization (principal)
CPT/HCPCS: 0031A; 91303

== ENCOUNTER → 2020-06-03 10:12 | Outpatient (CLI) | payer MEDICARE, OTHER, SELFPAY ==
[2020-06-03 11:30] LABS: COVID19 -Nasal RAPID Negative (Negative)
== END ==
PROVIDERS: PCP Family Medicine; Visit Provider Physician Assistant
DX: Z01.812 Encounter for preprocedural laboratory examination (principal); Z20.822 Contact with and (suspected) exposure to COVID-19
CPT/HCPCS: 87635; C9803

== ENCOUNTER → 2020-06-04 13:10 | Outpatient (CLI) | payer MEDICARE, OTHER, SELFPAY ==
--- NOTE | 2020-06-04 14:36 | PM.TREADMILL ---
Cardiac Stress Test Report Referral & Results Date Patient Seen: 06/04/20 Requesting provider: Abe Nelson Indication: Hypertension Rest ECG: Unremarkable Procedure Note: Today following both written and verbal informed consent, the patient was exercised according to a standard Doug protocol. The patient exercised for a total of 5 minutes 59 seconds achieving a maximum heart rate of 155. Patient's maximum systolic blood pressure was 182. This was an estimated 7.0 MET's. There are no ST-T segment changes Patient was quickly tachycardic but also dropped to slower heart rates quickly in recovery Function aerobic impairment rates about 18% on the sedentary scale Patient did have PVCs at peak exercise and 1 ventricular couplet during recovery Impression: No evidence of ischemia, patient did develop some chest symptoms during exercise quite suspicious for ischemia although absolutely no changes seen on ECG depending on clinical concern, this study could be repeated with perfusion imaging as well for increased sensitivity Please note: Actual ECG tracings can be found in the PACS system.
== END ==
PROVIDERS: PCP Family Medicine; Referring Provider Family Medicine; Visit Provider Family Medicine
DX: R06.02 Shortness of breath (principal); R00.2 Palpitations; I10 Essential (primary) hypertension; M25.531 Pain in right wrist; M67.40 Ganglion, unspecified site; T73.3XXA Exhaustion due to excessive exertion, initial encounter; E03.9 Hypothyroidism, unspecified; E11.9 Type 2 diabetes mellitus without complications
CPT/HCPCS: 93016; 93017; 93018

== ENCOUNTER → 2021-06-28 15:24 | Outpatient (CLI) | payer MEDICARE, OTHER, SELFPAY ==
--- NOTE | 2021-06-28 15:26 | DI.MG.S_ITS ---
BILATERAL DIGITAL SCREENING MAMMOGRAM 3D/2D WITH CAD: 06/28/2021 CLINICAL: Routine screening. Family history of breast cancer. Comparison is made to exams dated: 06/23/2018 mammogram, 10/02/2015 mammogram, 06/08/2010 mammogram, and 12/01/2003 mammogram - [facility]. There are scattered fibroglandular elements in both breasts. Current study was also evaluated with a Computer Aided Detection (CAD) system. No significant masses, calcifications, or other findings are seen in either breast. There has been no significant interval change. IMPRESSION: NEGATIVE There is no mammographic evidence of malignancy. A 1 year screening mammogram is recommended. This exam was interpreted at Station ID: [id number]. NOTE: For mammograms, a report in lay terms will be sent to the patient. Approximately 15% of breast malignancies will not be visualized mammographically. In the management of a palpable breast mass, a negative mammogram must not discourage biopsy of a clinically suspicious lesion. Electronically Signed By: Maximus tyson/felice:06/29/2021 08:22:06 letter sent: Normal Exam ACR BI-RADS Category 1: Negative [id number]
== END ==
PROVIDERS: PCP Family Medicine; Referring Provider Family Medicine; Visit Provider Family Medicine
DX: Z12.31 Encounter for screening mammogram for malignant neoplasm of breast (principal); Z80.3 Family history of malignant neoplasm of breast
CPT/HCPCS: 77063; 77067

== ENCOUNTER → 2021-06-29 08:26 | Outpatient (CLI) | payer MEDICARE, OTHER, SELFPAY ==
[2021-06-29 09:49] LABS: Hemoglobin A1C% w Est Avg Glu 6.8 % (4.0-6.0)
[2021-06-29 09:53] LABS: Alanine Aminotransferase 13 IU/L (<35); Albumin 4.5 g/dL (3.5-5.0); Albumin Globulin Ratio 1.5 (1.0-2.8); Alkaline Phosphatase 58 U/L (38-126); Aspartate Aminotransferase 27 IU/L (14-36); BUN Creatinine Ratio 13.9 (6-22); Bilirubin Total 0.4 mg/dL (0.2-1.3); Blood Urea Nitrogen 10 mg/dL (7-17); Calcium 9.3 mg/dL (8.4-10.2); Carbon Dioxide 27 mmol/L (22-32); Chloride 104 mmol/L (98-107); Cholesterol 160 mg/dL (140-199); Estimated Glomerular Filt Rate > 60.0 mL/min (>60); Glucose 135 mg/dL (80-110); HDL Cholesterol 53 mg/dL (40-60); HEMOLYSIS < 15 (0-50); LDL Cholesterol Calculated 79 mg/dL (<100); Potassium 4.2 mmol/L (3.4-5.1); Sodium 139 mmol/L (137-145); Total Protein 7.5 g/dL (6.3-8.2); Triglycerides 140 mg/dL (35-150)
== END ==
PROVIDERS: PCP Family Medicine; Referring Provider Family Medicine; Visit Provider Family Medicine
DX: E11.9 Type 2 diabetes mellitus without complications (principal); E03.9 Hypothyroidism, unspecified; Z00.00 Encounter for general adult medical examination without abnormal findings; E78.1 Pure hyperglyceridemia
CPT/HCPCS: 36415; 80053; 80061; 83036; 84443

== ENCOUNTER → 2021-10-25 11:15 | Outpatient (CLI) | payer MEDICARE, OTHER, SELFPAY | PROVIDERS: PCP Family Medicine; Visit Provider Nurse Practitioner Family | DX: R30.0 Dysuria (principal) | CPT/HCPCS: 87077; 87086; 87186 ==

== ENCOUNTER → 2022-01-14 14:26 | Outpatient (CLI) | payer MEDICARE, OTHER, SELFPAY ==
[2022-01-14 16:03] LABS: Alanine Aminotransferase 22 IU/L (<35); Albumin 4.4 g/dL (3.5-5.0); Albumin Globulin Ratio 1.4 (1.0-2.8); Alkaline Phosphatase 71 U/L (38-126); Aspartate Aminotransferase 29 IU/L (14-36); BUN Creatinine Ratio 16.2 (6-22); Bilirubin Total 0.4 mg/dL (0.2-1.3); Blood Urea Nitrogen 12 mg/dL (7-17); Carbon Dioxide 25 mmol/L (22-32); Chloride 100 mmol/L (98-107); Estimated Glomerular Filt Rate > 60 mL/min (>60); Globulin 3.1 g/dL (1.7-4.1); Glucose 183 mg/dL (80-110); HEMOLYSIS < 15 (0-50); Potassium 4.3 mmol/L (3.4-5.1); Sodium 136 mmol/L (137-145); Total Protein 7.5 g/dL (6.3-8.2)
[2022-01-14 16:04] LABS: Hemoglobin A1C% w Est Avg Glu 6.6 % (4.0-6.0)
[2022-01-14 16:46] LABS: Thyroid Stimulating Hormone 1.49 uIU/mL (0.47-4.68)
== END ==
PROVIDERS: PCP Family Medicine; Referring Provider Family Medicine; Visit Provider Family Medicine
DX: Z00.00 Encounter for general adult medical examination without abnormal findings (principal); E11.9 Type 2 diabetes mellitus without complications; E03.9 Hypothyroidism, unspecified
CPT/HCPCS: 36415; 80053; 83036; 84443

== ENCOUNTER → 2022-03-03 09:03 | Outpatient (CLI) | payer MEDICARE, OTHER, SELFPAY | PROVIDERS: PCP Family Medicine; Visit Provider Nurse Practitioner Family | DX: R30.0 Dysuria (principal) | CPT/HCPCS: 87077; 87086; 87186 ==

== ENCOUNTER → 2022-07-23 09:40 | Outpatient (CLI) | payer MEDICARE, OTHER, SELFPAY ==
[2022-07-23 10:08] LABS: Add Manual Diff / Slide Review NO; Basophils Absolute Auto 100 /uL (0-100); Basophils Percent Auto 1.3 % (0-2); Eosinophils Absolute Auto 200 /uL (0-450); Eosinophils Percent Auto 2.8 % (2-4); Hematocrit 38.6 % (36-46); Hemoglobin 12.9 g/dL (12.0-16.0); Lymphocytes Absolute Auto 2200 /uL (1100-4500); Lymphocytes Percent Auto 34.7 % (25-40); Mean Corpuscular HGB Conc 33.6 % (30-36); Mean Corpuscular Hemoglobin 29.1 PG (26-34); Mean Corpuscular Volume 86.9 fL (80-100); Monocytes Absolute Auto 600 /uL (0-900); Monocytes Percent Auto 9.2 % (3-14); Neutrophils Absolute Auto 3300 /uL (1500-7000); Platelet Count 266 X10^3/uL (150-400); Red Blood Cell Count 4.44 X10^6/uL (4.0-5.2); Red Cell Distribution Width 14.1 % (11.6-14.8); White Blood Cell Count 6.4 X10^3/uL (4.5-11.0)
[2022-07-23 10:38] LABS: Alanine Aminotransferase 18 IU/L (<35); Albumin 4.5 g/dL (3.5-5.0); Albumin Globulin Ratio 1.6 (1.0-2.8); Alkaline Phosphatase 70 U/L (38-126); Aspartate Aminotransferase 26 IU/L (14-36); BUN Creatinine Ratio 16.7 (6-22); Bilirubin Total 0.5 mg/dL (0.2-1.3); Blood Urea Nitrogen 12 mg/dL (7-17); Calcium 9.6 mg/dL (8.4-10.2); Carbon Dioxide 25 mmol/L (22-32); Chloride 103 mmol/L (98-107); Cholesterol 192 mg/dL (140-199); Estimated Glomerular Filt Rate > 60 mL/min (>60); Globulin 2.8 g/dL (1.7-4.1); Glucose 139 mg/dL (80-110); HDL Cholesterol 70 mg/dL (40-60); HEMOLYSIS < 15 (0-50); LDL Cholesterol Calculated 96 mg/dL (<100); Potassium 4.9 mmol/L (3.4-5.1); Sodium 136 mmol/L (137-145); Total Protein 7.3 g/dL (6.3-8.2); Triglycerides 132 mg/dL (35-150)
[2022-07-23 10:38] LABS: Creatinine Urine Random 54.1 mg/dL
[2022-07-23 10:43] LABS: Microalbumin Urine Random < 0.6 mg/dL (0-1.6)
[2022-07-23 11:08] LABS: TSH w/ Reflex to FT4 1.63 uIU/mL (0.47-4.68)
[2022-07-25 01:04] LABS: x Labcorp Estim. Avg Glu (eAG) 154 mg/dL (.)
== END ==
PROVIDERS: PCP Family Medicine; Referring Provider Family Medicine; Visit Provider Family Medicine
DX: E03.9 Hypothyroidism, unspecified (principal); E78.1 Pure hyperglyceridemia; I10 Essential (primary) hypertension; E11.9 Type 2 diabetes mellitus without complications
CPT/HCPCS: 36415; 80053; 80061; 82043; 82570; 83036; 84443; 85025

== ENCOUNTER → 2022-11-08 10:48 | Outpatient (CLI) | payer MEDICARE, OTHER, SELFPAY ==
[2022-11-08 14:09] LABS: Bilirubin Urine UA NEGATIVE (NEGATIVE); Color Urine UA YELLOW; Glucose Urine UA 2+ g/dL (Negative); Ketones Urine UA NEGATIVE (NEGATIVE); Leukocyte Esterase Urine UA 3+ (NEGATIVE); Nitrite Urine UA NEGATIVE (Negative); Occult Blood Urine UA TRACE-INTACT (Negative); Protein Urine UA NEGATIVE (Negative); Urobilinogen Urine UA 0.2 E.U./dL (0.2)
[2022-11-08 14:11] LABS: Appearance Urine UA Slightly Cloudy
[2022-11-08 14:30] LABS: Bacteria Urine Few (2-10); RBC Urine 5-10/HPF (0-5/HPF); Squamous Epithelial Cell Urine 0-1 /HPF (0-5/HPF); WBC Urine 30-100/HPF (0-5/HPF)
[2022-11-08 14:31] LABS: Culture Indicated Urine Specimen Cultured
== END ==
PROVIDERS: PCP Family Medicine; Visit Provider Family Medicine
DX: N39.0 Urinary tract infection, site not specified (principal); R31.9 Hematuria, unspecified
CPT/HCPCS: 81001; 87077; 87086; 87186

== ENCOUNTER 2022-11-15 09:37 | Day surgery (SDC) | payer MEDICARE, OTHER, SELFPAY ==
[2022-11-15 10:16] VITALS: BMI 24.3
[2022-11-15 10:25] VITALS: BP 154/88; PULSE 83; RESP 17; TEMP 36.6; O2SAT 96
[2022-11-15] MEDS: LACTATED RINGERS 1,000 ML 42 ML IV (10:34)
--- NOTE | 2022-11-15 10:41 | P.HP_ITS ---
History of Present Illness History of Present Illness Date Patient Seen: 11/15/22 Time Patient Seen: 10:41 Chief complaint: [facility] [place] Narrative: 66-year-old woman personal history of colonic polyps here for screening colonoscopy. Last colonoscopy 5 years ago. Over the past 2 years she is been having episodes of left lower quadrant pain. No blood per rectum or unintentional weight loss. She recalls the finding of diverticular disease from her last colonoscopy. [facility]LY [facility] Medical History Abdominal pain Allergy (1972) Anemia (Unknown) Asthma (2000) Back pain Bunion of great toe of right foot Chickenpox (~1956) Chronic left upper quadrant pain Chronic UTI Colon polyps (Unknown) Diabetes (2000) Dyspareunia due to medical condition in female Eczema Endometriosis (1973) Ganglion Ganglion cyst History of recurrent UTI (urinary tract infection) History of UTI Hypercholesteremia Hyperlipidemia (2000) Hypertriglyceridemia Hypothyroidism (2000) Menopause (2000) Migraines (1976) Palpitations Peripheral neuropathy (2011) Pneumonia (Unknown) Recurrent sinusitis (1984) Restless leg syndrome (2011) Stress incontinence Urinary incontinence (2009) Well adult exam Surgical History Status post endometrial ablation Family History Child Age: 39 Hypertension Hyperlipidemia Depression Child Age: 34 Hypertension Hyperlipidemia Depression Mother Diabetes mellitus Hypertension Asthma Hyperlipidemia Sister Age: 69 Diabetes mellitus Fibromyalgia Depression Social History household members: spouse Smoking Status: Former smoker Meds Home Medications and Allergies Home Medications Medication Instructions Recorded Confirmed Type azelastine 137 mcg (0.1 %) nasal See Rx Instructions .Route 07/15/21 11/15/22 Rx spray aerosol .COMPLEX #30 mL albuterol sulfate 90 mcg/actuation 2 puff inhalation Q4-6H PRN 01/13/22 11/15/22 Rx aerosol inhaler shortness of breath or wheezing/cough #6.7 grams cyanocobalamin (vitamin B-12) 1,000 mcg PO DAILY 01/20/22 11/15/22 History 1,000 mcg capsule levothyroxine 100 mcg tablet See Rx Instructions .Route 06/03/22 11/15/22 Rx .COMPLEX #90 tabs montelukast 10 mg tablet See Rx Instructions .Route 06/03/22 11/15/22 Rx .COMPLEX #90 tabs atorvastatin 40 mg tablet 40 mg PO DAILY #90 tabs 10/02/22 11/15/22 Rx Estriol 1mg Vaginal Yojana See Rx Instructions .Route 11/08/22 11/15/22 Rx .COMPLEX 30 days #30 ea metformin 500 mg tablet 500 mg PO BID 11/08/22 11/15/22 History triamcinolone acetonide 0.1 % 1 applic topical BID #15 grams 11/11/22 11/11/22 Rx topical cream Allergies Allergy/AdvReac Type Severity Reaction Status Date / Time ciprofloxacin Allergy Intermediate RASH Verified 11/15/22 10:03 Penicillins Allergy Intermediate RASH Verified 11/15/22 10:03 Exam Vital Signs (past 8 hours): - 11/15/22 10:25 Temperature 97.8 F Pulse Rate 83 Respiratory Rate 17 Blood Pressure 154/88 H Pulse Oximetry 96 Oxygen Delivery Method Room Air Oxygen Delivery Method Room Air Narrative Exam Narrative: General adult woman alert oriented no acute distress Abdomen soft nontender nondistended Assessment & Plan Assessment and plan (1) Personal history of colonic polyps: Status: Acute Assessment & Plan narrative: The patient requires colorectal screening and colonoscopy is recommended. Technical details were discussed. Risks, benefits, alternatives explained. Risks including but not limited to myocardial infarction, aspiration, bleeding, pain, missed lesion, incomplete examination, need for further radiographic studies, colonic perforation, and need for major abdominal surgery were discussed. All questions were answered to their satisfaction, and they are in agreement with this plan.
--- NOTE | 2022-11-15 10:44 | PM.OP.COLON ---
Operative Date/Time/Diagnoses Date of procedure: 11/15/22 Time of procedure: 10:44 Pre-op diagnosis: Colorectal screening Procedure & Clinicians Study performed: Colonoscopy Same procedure as scheduled: Yes Indications: Colorectal screening. Personal history of colonic polyps. Surgeon: Ruben Choi Procedure Notes Procedure in detail: The history and physical was performed/updated and the patient is ASA class is 2. The procedure was discussed in detail with the patient. Potential risks complications including infection, bleeding, missed diagnosis, perforation, need for surgery, and were explained. Their questions were answered and informed consent was obtained. Patient was brought to the procedure room and placed standard monitoring equipment. The patient's vital signs were monitored continuously throughout the entire procedure. Prior to starting time-out was performed. The patient was placed in the left lateral recumbent position. Procedural sedation was administered by anesthesia. Examination began with a thorough inspection of the perianal area there was no evidence of fissures, fistulae, external hemorrhoids or cutaneous malignancy. The colonoscopy scope was then placed into the anal canal and was advanced to the cecum, which was identified by the ileocecal valve, the appendiceal orifice and the confluence of the taenia. The scope was then slowly withdrawn examining colon thoroughly in all directions, irrigating it of any residual stool. No masses or polyps. Sigmoid-minimal diverticulosis The patient tolerated the procedure well. They will be discharged once criteria are met. The prep was of good/excellent quality. The withdrawl time was 6 minutes. Specimen(s): none sent Impression: Normal colonoscopy Post-procedure Recommendations: High fiber diet Plan for aftercare: No further colonoscopy necessary unless symptomatic. Disposition: same day surgery
[2022-11-15 11:10] VITALS: BP 84/50; PULSE 69; RESP 14; TEMP 36.2; O2SAT 95
[2022-11-15 11:14] VITALS: BP 82/47; PULSE 69; RESP 16; O2SAT 96
[2022-11-15 11:20] VITALS: BP 89/52; PULSE 67; RESP 16; O2SAT 96
[2022-11-15 11:26] VITALS: BP 117/77; PULSE 75; RESP 18; TEMP 36.6; O2SAT 97
[2022-11-15 11:34] VITALS: BP 114/65; PULSE 76; RESP 16; TEMP 36.6; O2SAT 99
== END 2022-11-15 11:45 | disposition home or self-care (01) ==
PROVIDERS: PCP Family Medicine; Referring Provider Surgery; Visit Provider Surgery
PROC: 0DJD8ZZ Inspection of Lower Intestinal Tract, Via Natural or Artificial Opening Endoscopic (ICD-10-PCS; CPT 45378; principal; 2022-11-15 10:45)
DX: Z12.11 Encounter for screening for malignant neoplasm of colon (principal); Z86.010 Personal history of colon polyps; K57.30 Diverticulosis of large intestine without perforation or abscess without bleeding
CPT/HCPCS: G0105; J2704

== ENCOUNTER → 2023-06-19 09:32 | Outpatient (CLI) | payer MEDICARE, OTHER, SELFPAY ==
[2023-06-19 10:43] LABS: Appearance Urine UA CLEAR; Bilirubin Urine UA NEGATIVE (NEGATIVE); Color Urine UA YELLOW; Glucose Urine UA NEGATIVE (Negative); Ketones Urine UA NEGATIVE (NEGATIVE); Leukocyte Esterase Urine UA NEGATIVE (NEGATIVE); Nitrite Urine UA NEGATIVE (Negative); Occult Blood Urine UA NEGATIVE (Negative); Protein Urine UA NEGATIVE (Negative); Specific Gravity Urine UA <=1.005 (1.000-1.035); Urobilinogen Urine UA 0.2 E.U./dL (0.2)
[2023-06-19 10:44] LABS: pH Urine UA 5.5 (4.5-8.0)
[2023-06-19 10:45] LABS: Urine Volume 10mL (spun)
[2023-06-19 10:46] LABS: Bacteria Urine None Seen; Culture Indicated Urine Cult Not Indicated; RBC Urine None Seen (0-5/HPF); Squamous Epithelial Cell Urine None Seen (0-5/HPF); WBC Urine None Seen (0-5/HPF)
[2023-06-19 10:47] LABS: Alanine Aminotransferase 18 IU/L (<35); Albumin 4.2 g/dL (3.5-5.0); Albumin Globulin Ratio 1.3 (1.0-2.8); Alkaline Phosphatase 80 U/L (38-126); Aspartate Aminotransferase 26 IU/L (14-36); BUN Creatinine Ratio 18.6 (6-22); Bilirubin Total 0.5 mg/dL (0.2-1.3); Blood Urea Nitrogen 13 mg/dL (7-17); Calcium 9.3 mg/dL (8.4-10.2); Carbon Dioxide 26 mmol/L (22-32); Chloride 107 mmol/L (98-107); Estimated Glomerular Filt Rate > 60 mL/min (>60); Globulin 3.2 g/dL (1.7-4.1); Glucose 143 mg/dL (80-110); HEMOLYSIS < 15 (0-50); Potassium 4.5 mmol/L (3.4-5.1); Sodium 137 mmol/L (137-145); Total Protein 7.4 g/dL (6.3-8.2)
[2023-06-19 10:50] LABS: Hemoglobin A1C% w Est Avg Glu 6.7 % (4.0-6.0)
[2023-06-19 11:02] LABS: Free T4, Direct Thyroxine 1.35 ng/dL (0.78-2.19)
== END ==
PROVIDERS: PCP Family Medicine; Referring Provider Family Medicine; Visit Provider Family Medicine
DX: E11.9 Type 2 diabetes mellitus without complications (principal); E03.9 Hypothyroidism, unspecified; I10 Essential (primary) hypertension; N39.0 Urinary tract infection, site not specified
CPT/HCPCS: 36415; 80053; 81001; 83036; 84439; 84443

== ENCOUNTER → 2023-06-26 08:51 | Outpatient (CLI) | payer MEDICARE, OTHER, SELFPAY ==
--- NOTE | 2023-06-26 08:54 | DI.US.S_ITS ---
PROCEDURE: US PELVIC COMPLETE INDICATIONS: PELVIC PAIN TECHNIQUE: Real-time scanning was performed of the pelvic organs, with image documentation. Additional endovaginal scanning was necessary due to incomplete visualization of the adnexal and endometrial structures by transabdominal scanning. COMPARISON: None. FINDINGS: Uterus: Uterus is anteverted and normal in size at 5.8 x 4.1 x 2.3 cm. The myometrium is homogeneous. The endometrium measures 2 mm combined thickness. No fibroids seen. Ovaries: Ovaries are not identified. Other: No pathologic free abdominal or pelvic fluid. IMPRESSION: 1. Source for pelvic pain is not identified. 2. Ovaries are not identified. 3. Endometrium measures 2 mm. We strive to produce accurate, complete, and clear reports of imaging services. To assist us in improving patient care, this report was composed using standard report templates and voice recognition software. Therefore, it may contain abnormal punctuation, insertions and/or omissions. Occasional wrong-word or sound-alike substitutions may occur. Though we review the report and make efforts to correct it, we do recommend that the report be read carefully in proper context to recognize any text inaccuracies. Dictated by: Maximus Horan M.D. on 06/26/2023 at 12:35 Approved by: Maximus Horan M.D. on 06/26/2023 at 12:39
== END ==
LOC: US 08:53
PROVIDERS: PCP Family Medicine; Referring Provider Nurse Practitioner Family; Visit Provider Nurse Practitioner Family
DX: R10.2 Pelvic and perineal pain (principal)
CPT/HCPCS: 76856

== ENCOUNTER → 2023-07-03 15:27 | Outpatient (CLI) | payer MEDICARE, OTHER, SELFPAY ==
[2023-07-03 17:37] LABS: Cancer Antigen 125 6.8 U/mL (0-35)
[2023-07-07 09:56] LABS: Human Epididymis Prot 4 67.9 pmol/L (0.0-96.5)
== END ==
PROVIDERS: PCP Family Medicine; Referring Provider Obstetrics & Gynecology; Visit Provider Obstetrics & Gynecology
DX: R10.2 Pelvic and perineal pain (principal); Z80.41 Family history of malignant neoplasm of ovary
CPT/HCPCS: 36415; 86304; 86305

== ENCOUNTER → 2023-07-22 15:20 | Outpatient (CLI) | payer MEDICARE, OTHER, SELFPAY ==
[2023-07-22 16:31] LABS: Influenza A - CEPHEID Flu A NEGATIVE (NEGATIVE); Influenza B - CEPHEID Flu B NEGATIVE (NEGATIVE); Respiratory Syncytial Virus Negative (Negative)
[2023-07-22 16:38] LABS: COVID-19 CEPHEID 4-PLEX PCR Negative (Negative)
== END ==
PROVIDERS: PCP Family Medicine; Visit Provider Physician Assistant
DX: J02.9 Acute pharyngitis, unspecified (principal)
CPT/HCPCS: 0241U; 87070

== ENCOUNTER → 2023-08-12 10:33 | Outpatient (CLI) | payer MEDICARE, OTHER, SELFPAY | PROVIDERS: PCP Family Medicine; Visit Provider Registered Nurse | DX: R30.0 Dysuria (principal) | CPT/HCPCS: 87086; 87186 ==

== ENCOUNTER 2023-09-29 14:52 | Emergency (ER) | payer MEDICARE, OTHER, SELFPAY ==
[2023-09-29 15:44] VITALS: BP 132/64; PULSE 74; RESP 14; TEMP 36.6; O2SAT 97; BMI 24.3
--- NOTE | 2023-09-29 18:25 | ED.EXTPRO ---
HPI - Extremity Problem <Oleg SchwartzOBED blake - Last Filed: 09/29/23 18:52> General Chief complaint: Extremity Problem,Nontraumatic Stated complaint: severe lf hip pain t-3 Time Seen by Provider: 09/29/23 17:07 Source: patient Mode of arrival: Ambulatory History of Present Illness HPI Narrative: 67-year-old female, former smoker, presents to the emergency department with left leg pain x3 days. Patient denies trauma or extraneous activity the day beforehand. Patient endorses that the pain radiates from the back of her left buttock down to her ankle that worsens with sitting or lying flat. Patient does have improvement of symptoms when walking. Patient has been taking ibuprofen up to 600 mg every 6 hours as needed for discomfort. Patient denies any loss control of bowel or bladder or persistent numbness and tingling of her legs. No history of sciatica. Patient has had 2 adjustments from her chiropractor that have only mitigated the pain. Related Data Home Medications Medication Instructions Recorded Confirmed cyanocobalamin (vitamin B-12) 1,000 mcg PO DAILY 01/20/22 08/12/23 1,000 mcg capsule Previous Rx's Medication Instructions Recorded azelastine 137 mcg (0.1 %) nasal See Rx Instructions .Route 07/15/21 spray aerosol .COMPLEX #30 mL albuterol sulfate 90 mcg/actuation 2 puff inhalation Q4-6H PRN 01/13/22 aerosol inhaler shortness of breath or wheezing/cough #6.7 grams atorvastatin 40 mg tablet 40 mg PO DAILY #90 tabs 01/02/23 levothyroxine 100 mcg tablet See Rx Instructions .Route 06/21/23 .COMPLEX #90 tabs montelukast 10 mg tablet See Rx Instructions .Route 06/21/23 .COMPLEX #90 tabs phenazopyridine 200 mg tablet 200 mg PO TID PRN pain 6 doses #6 08/12/23 (Pyridium) tabs metformin 500 mg tablet 500 mg PO BID #180 tabs 08/15/23 methocarbamol 500 mg tablet 500 mg PO TID PRN muscle pain #20 09/29/23 tabs methylprednisolone 4 mg tablets in See Rx Instructions PO .COMPLEX 09/29/23 a dose pack (Medrol (Jeremias)) #21 ea Allergies Allergy/AdvReac Type Severity Reaction Status Date / Time ciprofloxacin Allergy Intermediate RASH Verified 08/12/23 10:31 Penicillins Allergy Intermediate RASH Verified 08/12/23 10:31 Review of Systems <OBED Matias - Last Filed: 09/29/23 18:52> Review of Systems Narrative: Narrative: See HPI. GENERAL: Denies chills, fatigue, fever, sweats. HEENT: Denies sinus pain, ear pain, sore throat, difficulty swallowing, dizziness. RESPIRATORY: Denies dyspnea, cough, wheezing, sputum. CARDIOVASCULAR: Denies chest pain, palpitations, edema. GASTROINTESTINAL: Denies vomiting, abdominal pain, diarrhea, constipation. Endorses mild nausea with the pain. : Denies dysuria, frequency, incontinence, hematuria, urinary retention, flank pain. MSK: Denies weakness. Endorses left leg pain. SKIN: Denies rash, skin lesions, or pruritis. NEUROLOGIC: Denies weakness, dizziness, headache, numbness, confusion. PSYCHIATRIC: No concerning psychosocial issues. Patient History <OBED Matias - Last Filed: 09/29/23 18:52> Medical History Diverticulosis Eczema Bunion of great toe of right foot Well adult exam Ganglion History of UTI Ganglion cyst Hypertriglyceridemia Palpitations Back pain Abdominal pain Chronic UTI Chronic left upper quadrant pain History of recurrent UTI (urinary tract infection) Hypercholesteremia Dyspareunia due to medical condition in female Stress incontinence Colon polyps (Unknown) Anemia (Unknown) Pneumonia (Unknown) Asthma (2000) Allergy (1972) Restless leg syndrome (2011) Peripheral neuropathy (2011) Migraines (1976) Chickenpox (~1956) Recurrent sinusitis (1984) Menopause (2000) Endometriosis (1973) Urinary incontinence (2009) Hypothyroidism (2000) Diabetes (2000) Hyperlipidemia (2000) Surgical History Status post endometrial ablation Family History Child Age: 40 Hypertension Hyperlipidemia Depression Child Age: 35 Hypertension Hyperlipidemia Depression Mother Diabetes mellitus Hypertension Asthma Hyperlipidemia Sister Age: 70 Diabetes mellitus Fibromyalgia Depression Social History household members: spouse Smoking Status: Former smoker Smoking Status: Former smoker alcohol intake frequency: holidays/special occasions only Substance Use Type: does not use Exam <OBED Matias - Last Filed: 09/29/23 18:52> Narrative Exam Narrative: Exam Narrative: GENERAL: This is a well-nourished, well-developed patient, in no acute distress HEAD: Atraumatic. Normocephalic. ENT: Nose without bleeding, purulent drainage. Throat without erythema, tonsillar hypertrophy or exudate. Uvula midline. Airway patent. TMs and canals clear. No lymphadenopathy. No sinus tenderness. RESPIRATORY: Respiratory rate and effort are normal. MSK: Moves all extremities. Normal range of motion, no clubbing or edema. Neurovascularly intact. NEURO: A&O x 3. SKIN: Warm, dry, no rashes or lesions noted. BACK element winding machine tender but free of any obvious external abnormalities. There is no asymmetry, swelling, bruising or wound. There is no paraspinal tenderness or CVA tenderness. SI joints nontender. No pain over spinous processes. No symptoms of cauda equina such as saddle anesthesia. Sensation is grossly intact. ROM is limited due to pain. SLE is positive bilaterally. Reflexes 2-3 at patella bilaterally. Resistive strengths are within normal limits Gait is antalgic. Initial Vital Signs Initial Vital Signs: Vital Signs Temperature 97.8 F 09/29/23 15:44 Pulse Rate 74 09/29/23 15:44 Respiratory Rate 14 09/29/23 15:44 Blood Pressure 132/64 09/29/23 15:44 Pulse Oximetry 97 09/29/23 15:44 Oxygen Delivery Method Room Air 09/29/23 15:44 Reviewed <Joie Franks MD - Last Filed: 09/29/23 21:22> Initial Vital Signs Initial Vital Signs: Vital Signs Temperature 97.8 F 09/29/23 15:44 Pulse Rate 74 09/29/23 15:44 Respiratory Rate 14 09/29/23 15:44 Blood Pressure 132/64 09/29/23 15:44 Pulse Oximetry 97 09/29/23 15:44 Oxygen Delivery Method Room Air 09/29/23 15:44 Course <OBED Matias - Last Filed: 09/29/23 18:52> Orders Ordered: Discontinued Medications Ketorolac Tromethamine (Ketorolac 30 Mg/Ml Vial) 30 mg IM NOW ONE Stop: 09/29/23 18:20 Last Admin: 09/29/23 18:44 Dose: 30 mg Documented By: AMY Vital Signs Vital signs: Vital Signs - 8 hr 09/29/23 15:44 09/29/23 18:56 Temperature 97.8 F Pulse Rate 74 75 Respiratory Rate 14 16 Blood Pressure 132/64 160/76 H Pulse Oximetry 97 100 Oxygen Delivery Method Room Air Room Air <Joie Franks MD - Last Filed: 09/29/23 21:22> Orders Ordered: Discontinued Medications Ketorolac Tromethamine (Ketorolac 30 Mg/Ml Vial) 30 mg IM NOW ONE Stop: 09/29/23 18:20 Last Admin: 09/29/23 18:44 Dose: 30 mg Documented By: ZGG Vital Signs Vital signs: Vital Signs - 8 hr 09/29/23 15:44 09/29/23 18:56 Temperature 97.8 F Pulse Rate 74 75 Respiratory Rate 14 16 Blood Pressure 132/64 160/76 H Pulse Oximetry 97 100 Oxygen Delivery Method Room Air Room Air MDM - Extremity (Nontraumatic) <OBED Matias - Last Filed: 09/29/23 18:52> Differential Diagnosis Differential diagnosis: Likely other (Sciatica, low back strain) MDM Narrative Medical decision making narrative: 67-year-old female with left-sided sciatica. Assessment was consistent with sciatica. No red flag symptoms such as saddle anesthesia noted. Toradol 30 mg administered. Through mutual decision making, will discharge patient home with a Medrol Dosepak and muscle relaxer, in case the steroid does not work. Patient has a follow up appointment with her family doctor next . Discussed plan of care and return precautions with patient and , who verbalized understanding and were agreeable with course of action Discharge Plan Departure Patient Disposition: Home Clinical Impression: Sciatica Qualifiers: Laterality: left Qualified Code(s): M54.32 - Sciatica, left side Instructions: DI for Sciatica Activity Restrictions/Additional Instructions: *You have been diagnosed with left-sided sciatica. We have given an injection of Toradol and should therefore not take anymore ibuprofen tonight. Per discussion, I will prescribe a Medrol Dosepak, prednisone, that you will take for the next 6 days. You should probably refrain taking any ibuprofen during this time. If for some reason the prednisone does not work, please use the muscle relaxer, methocarbamol, as needed. You may want to try hot or cold compresses to the affected site, gentle range of motion stretching exercises, etc. as it may provide comfort from this sciatica. For any worsening symptoms that include loss of control of bowel or bladder, intolerable pain, chest pain or shortness of breath, please return to the emergency department immediately. Otherwise, please follow-up with your family doctor next as previously scheduled. *What to do: *Please continue to take your regular medications as directed. [ x] New medication prescriptions sent to your pharmacy: [[facility]] [ ] New medication written as a paper prescription [ ] No new medications given *Please follow up with your primary care provider in 2-3 days, call for an appointment. Let them know you were seen in the Emergency Department and that we ask that you be seen in follow up. We will electronically transmit a record of today's note if your PCP is in our system *If you do not have a primary care provider please contact the [facility] Resource line at [phone]. They will ask some questions about your medical history and help get you set up with a doctor in the community. ? Return to ER if you should have any new, worsening or concerning symptoms, such as worsening pain, severe headache, confusion, chest pain, difficulty breathing, fever greater than 101 F, shaking chills, persistent vomiting to the point that you cannot drink fluids, or other new or worsening symptoms. Prescriptions: New methylprednisolone [Medrol (Jeremias)] 4 mg tablets,dose pack See Rx Instructions .ROUTE .COMPLEX Qty: 21 0RF Rx Instructions: orally per package directions methocarbamol 500 mg tablet 500 mg PO TID PRN (Reason: muscle pain) Qty: 20 0RF No Action phenazopyridine [Pyridium] 200 mg tablet 200 mg PO TID PRN (Reason: pain) Qty: 6 0RF azelastine 137 mcg (0.1 %) aerosol,spray See Rx Instructions .ROUTE .COMPLEX Qty: 30 0RF Dose Instruction: USE 1 SPRAY NASALLY DAILY NEEDED FOR ALLERGIES Rx Instructions: USE 1 SPRAY NASALLY DAILY NEEDED FOR ALLERGIES albuterol sulfate 90 mcg/actuation HFA aerosol inhaler 2 puff inhalation Q4-6H PRN (Reason: shortness of breath or wheezing/cough) Qty: 6.7 3RF Rx Instructions: 2 puffs inhaled as needed atorvastatin 40 mg tablet 40 mg PO DAILY Qty: 90 3RF levothyroxine 100 mcg tablet See Rx Instructions .ROUTE .COMPLEX Qty: 90 3RF Dose Instruction: TAKE 1 TABLET DAILY Rx Instructions: TAKE 1 TABLET DAILY montelukast 10 mg tablet See Rx Instructions .ROUTE .COMPLEX Qty: 90 3RF Dose Instruction: TAKE 1 TABLET DAILY Rx Instructions: TAKE 1 TABLET DAILY metformin 500 mg tablet 500 mg PO BID Qty: 180 0RF Rx Instructions: Take one tablet by mouth twice daily with meals cyanocobalamin (vitamin B-12) 1,000 mcg capsule 1,000 mcg PO DAILY Referrals: Abe Nelson, [Primary Care Provider] - Stand Alone Forms: Patient Portal/API ED Sign-out <Joie Franks MD - Last Filed: 09/29/23 21:22> Cosign ED Attending Cosignature Attestation: I did not see this patient. I was available all times for consultation.
[2023-09-29] MEDS: KETOROLAC 30 MG/ML VIAL IM (18:44)
[2023-09-29 18:56] VITALS: BP 160/76; PULSE 75; RESP 16; O2SAT 100
== END 2023-09-29 18:59 | disposition home or self-care (01) ==
PROVIDERS: Emergency Provider Registered Nurse; PCP Family Medicine
DX: M54.32 Sciatica, left side (principal)
CPT/HCPCS: 96372; 99283; J1885

== ENCOUNTER → 2023-10-05 11:40 | Outpatient (CLI) | payer MEDICARE, OTHER, SELFPAY ==
--- NOTE | 2023-10-05 11:42 | DI.RAD.S_ITS ---
PROCEDURE: XR HIP W PEL IF DONE MIKE MIN 4V INDICATIONS: bilateral hip pain TECHNIQUE: AP pelvis with lateral view(s) of the bilateral hip(s). COMPARISON: None. FINDINGS: Bones: No fractures or dislocations. [id number] bilateral hip joint osteoarthritic changes are seen with joint space narrowing, subchondral sclerosis and tiny marginal osteophyte formation. No evidence of avascular necrosis of femoral head. Pelvic ring appears intact. No suspicious bony lesions. Soft tissues: The visualized bowel gas pattern is normal. No suspicious soft tissue calcifications. IMPRESSION: No pelvic or hip fracture. Symmetric appearing [id number] bilateral hip joint osteoarthritis. No evidence of avascular necrosis. Dictated by: aDron Allen M.D. on 10/05/2023 at 13:57 Approved by: Daron Allen M.D. on 10/05/2023 at 13:58
--- NOTE | 2023-10-05 11:42 | DI.RAD.S_ITS ---
PROCEDURE: XR LUMBAR SPINE 2-3V INDICATIONS: back pain TECHNIQUE: 3 views of the lumbar spine were acquired. COMPARISON: [facility], CR, XR LUMBAR SPINE 2-3V, 12/04/2019, 13:45. FINDINGS: Bones: 5 [id number] vertebrae are present. There is very mild leftward curvature of lumbar spine with apex at L3 level unchanged from prior study. Degenerative endplate changes and loss of disc height throughout lumbar spine is seen. 4 mm anterolisthesis of L4 on L5 is also noted. No vertebral body compression fractures. No suspicious bony lesions. Soft tissues: Overlying bowel gas pattern is normal. No suspicious soft tissue calcifications. IMPRESSION: Mild degenerative disc disease throughout lumbar spine. No acute compression fracture. Mild scoliosis and grade 1 anterolisthesis of L4 on L5 as above. Dictated by: Daron Allen M.D. on 10/05/2023 at 13:51 Approved by: Daron Allen M.D. on 10/05/2023 at 13:54
== END ==
PROVIDERS: PCP Family Medicine; Referring Provider Family Medicine; Visit Provider Family Medicine
DX: M54.9 Dorsalgia, unspecified (principal); M25.551 Pain in right hip; M25.552 Pain in left hip; M51.36 Other intervertebral disc degeneration, lumbar region; M43.16 Spondylolisthesis, lumbar region; M41.9 Scoliosis, unspecified; M16.0 Bilateral primary osteoarthritis of hip
CPT/HCPCS: 72100; 73522

== ENCOUNTER → 2023-11-06 12:31 | Outpatient (CLI) | payer MEDICARE, OTHER, SELFPAY | PROVIDERS: PCP Family Medicine; Visit Provider Physician Assistant | DX: R30.0 Dysuria (principal) | CPT/HCPCS: 87077; 87086 ==

== ENCOUNTER → 2023-11-20 11:20 | Outpatient (CLI) | payer MEDICARE, OTHER, SELFPAY | PROVIDERS: PCP Family Medicine; Visit Provider Nurse Practitioner Family | DX: R30.0 Dysuria (principal); N94.89 Other specified conditions associated with female genital organs and menstrual cycle | CPT/HCPCS: 87077; 87086; 87186; 87210 ==

== ENCOUNTER → 2023-12-11 09:55 | Outpatient (CLI) | payer MEDICARE, OTHER, SELFPAY | PROVIDERS: PCP Family Medicine; Visit Provider Physician Assistant Surgical | DX: R30.0 Dysuria (principal) | CPT/HCPCS: 87077; 87086 ==

== ENCOUNTER → 2024-03-26 15:34 | Outpatient (CLI) | payer MEDICARE, OTHER, SELFPAY | PROVIDERS: PCP Family Medicine; Visit Provider Physician Assistant Surgical | DX: R30.0 Dysuria (principal) | CPT/HCPCS: 87086 ==

== ENCOUNTER → 2024-04-06 09:53 | Outpatient (CLI) | payer MEDICARE, OTHER, SELFPAY ==
[2024-04-06 11:34] LABS: Hemoglobin A1C% w Est Avg Glu 6.9 % (4.0-6.0)
[2024-04-06 12:00] LABS: Appearance Urine UA CLEAR; Bilirubin Urine UA NEGATIVE (NEGATIVE); Color Urine UA YELLOW; Glucose Urine UA NEGATIVE (Negative); Ketones Urine UA NEGATIVE (NEGATIVE); Leukocyte Esterase Urine UA NEGATIVE (NEGATIVE); Nitrite Urine UA NEGATIVE (Negative); Occult Blood Urine UA NEGATIVE (Negative); Protein Urine UA NEGATIVE (Negative); Specific Gravity Urine UA <=1.005 (1.000-1.035); Urobilinogen Urine UA 0.2 E.U./dL (0.2)
[2024-04-06 12:09] LABS: Alanine Aminotransferase 25 IU/L (<35); Albumin 4.5 g/dL (3.5-5.0); Albumin Globulin Ratio 1.7 (1.0-2.8); Alkaline Phosphatase 75 U/L (38-126); Aspartate Aminotransferase 33 IU/L (14-36); BUN Creatinine Ratio 9.2 (6-22); Bilirubin Total 0.6 mg/dL (0.2-1.3); Blood Urea Nitrogen 9 mg/dL (7-17); Calcium 9.4 mg/dL (8.4-10.2); Carbon Dioxide 28 mmol/L (22-32); Chloride 101 mmol/L (98-107); Cholesterol 178 mg/dL (140-199); Estimated Glomerular Filt Rate > 60 mL/min (>60); Globulin 2.7 g/dL (1.7-4.1); Glucose 138 mg/dL (80-110); HDL Cholesterol 51 mg/dL (40-60); HEMOLYSIS < 15 (0-50); LDL Cholesterol Calculated 84 mg/dL (<100); Sodium 134 mmol/L (137-145); Total Protein 7.2 g/dL (6.3-8.2); Triglycerides 215 mg/dL (35-150)
[2024-04-06 12:18] LABS: Urine Volume 10mL (spun)
[2024-04-06 12:19] LABS: Bacteria Urine None Seen; Culture Indicated Urine Cult Not Indicated; RBC Urine None Seen (0-5/HPF); Squamous Epithelial Cell Urine None Seen (0-5/HPF); WBC Urine None Seen (0-5/HPF)
[2024-04-06 12:25] LABS: Free T4, Direct Thyroxine 1.35 ng/dL (0.78-2.19)
[2024-04-06 12:39] LABS: Thyroid Stimulating Hormone 1.12 uIU/mL (0.47-4.68)
== END ==
PROVIDERS: PCP Family Medicine; Referring Provider Family Medicine; Visit Provider Family Medicine
DX: E11.9 Type 2 diabetes mellitus without complications (principal); E78.1 Pure hyperglyceridemia; I10 Essential (primary) hypertension; E03.9 Hypothyroidism, unspecified; N30.01 Acute cystitis with hematuria
CPT/HCPCS: 36415; 80053; 80061; 81001; 83036; 84439; 84443

== ENCOUNTER → 2025-02-09 14:14 | Outpatient (CLI) | payer MEDICARE, OTHER, SELFPAY | PROVIDERS: PCP Family Medicine; Visit Provider Nurse Practitioner Family | DX: N39.0 Urinary tract infection, site not specified (principal) | CPT/HCPCS: 87077; 87086 ==